=== PATIENT | male | born 1985 | race Caucasian/White ===

== ENCOUNTER 2022-06-13 08:29 | Emergency (ER) | payer MEDICAID, OTHER ==
[~2022-06-13] VITALS: Ht 177.8 cm; Wt 82.0 kg
[2022-06-13] MEDS ORDERED: EPINEPHrine HCL 1 MG/10 ML SYRG IV ONE (08:30)
[2022-06-13] MEDS ORDERED: SODIUM BICARBONATE 8.4% INJ 50ML SYRINGE IV ONE (08:30)
[2022-06-13] MEDS ORDERED: DOPamine 1600mCg/ml 400MG/250ml NSorD5 KIT/BAG IV ONE (08:30)
[2022-06-13] MEDS ORDERED: SODIUM CHLORIDE 0.9% 1,000 ML IV ONE ×2 (09:15)
[2022-06-13 09:21] LABS: Hemoglobin 9.5 g/dL (13.5-17.5)
[2022-06-13 09:22] LABS: Hematocrit 29.3 % (41.0-53.0); Mean Corpuscular Hemoglobin 27.4 pg (28.0-32.0); Mean Corpuscular Hgb Conc. 32.5 g/dL (32.0-36.0); Mean Corpuscular Volume 84.4 fL (80.0-100.0); Red Blood Cells 3.47 10^6/uL (4.5-5.90); Red Cell Distribution Width 14.6 % (11.8-14.3)
[2022-06-13 09:33] LABS: Albumin 1.9 g/dL (3.4-5.0); Calcium 7.8 mg/dL (8.5-10.1); Potassium 3.7 mmol/L (3.5-5.1)
[2022-06-13 09:38] LABS: White Blood Cell 38.2 10^3/uL (4.4-10.8)
[2022-06-13 09:39] LABS: Bilirubin, Total 1.8 mg/dL (0.2-1.0); Total Protein 6.2 g/dL (6.4-8.2)
[2022-06-13 09:40] LABS: Basophils % (manual) 0 (0.0-2.0); Blast Cells 0; Eosinophils % (manual) 0 (0-7); Metamyelocytes % 0; Myelocytes % 0; Promyelocytes % 0; Reactive Lymphocytes 0
[2022-06-13] MEDS ORDERED: IOHEXOL 350 MG/ML 100ML IJ ONE (09:56)
[2022-06-13] MEDS ORDERED: MAGNESIUM SULFATE 1GM/100ML 100 ML IV ONE (10:00)
[2022-06-13] MEDS ORDERED: cefTRIAXone 1GM/50ML D5W 50 ML IV ONE (10:00)
[2022-06-13] MEDS ORDERED: IPRATROPIUM BROM 0.5 MG/2.5ML INH SOL NEB ONE (10:00)
[2022-06-13] MEDS ORDERED: AZITHROMYCIN 500MG/ 250ML 250 ML IV ONE (10:00)
[2022-06-13] MEDS ORDERED: methylPREDNISolone SOD SUCC 125 MG/2 ML VL IV ONE (10:00)
[2022-06-13] MEDS ORDERED: ALBUTEROL SULF 2.5 MG/0.5ML(0.5%) NEB SOLN NEB ONE (10:00)
[2022-06-13] MEDS ORDERED: LORazepam 2MG/ML-1ML VIAL IV ONE (11:00)
[2022-06-13 11:03] LABS: Band Neutrophils % (manual) 8; Lymphocytes % (manual) 16 (10.0-50.0); Monocytes % (manual) 1 (0-12)
[2022-06-13] MEDS ORDERED: HALOPERIDOL LACTATE 5 MG/ML INJ VIAL ONE (11:16)
[2022-06-13] MEDS ORDERED: ETOMIDATE (2MG/ML) 20ML VIAL IV ONE ×2 (11:25→11:30)
[2022-06-13] MEDS ORDERED: SUCCINYLCHOLINE CHLORIDE 20 MG/ML 10ML VIAL IV ONE ×2 (11:25→11:30)
[2022-06-13] MEDS ORDERED: MIDAZOLAM DRIP 50 mg/50mL 50 ML IV ONE (11:25)
[2022-06-13] MEDS: MIDAZOLAM DRIP 50 mg/50mL 50 ML IV SCH (11:30)
[2022-06-13] MEDS ORDERED: SODIUM BICARBONATE 8.4 % INJ 50ML VIAL IV ONE ×5 (11:47→12:56)
[2022-06-13 11:50] LABS: Lactic Acid w/Reflex 7.2 mmol/L (0.4-2.0)
[2022-06-13 12:07] VITALS: BP 143/50
[2022-06-13 12:12] LABS: Alcohol, Urine < 3.0 mg/dL (0-10); Cannabinoid Screen, Urine POSITIVE (NEGATIVE); Opiate Scree,Urine NEGATIVE (NEGATIVE); Phencyclidine Screen, Urine NEGATIVE (NEGATIVE)
[2022-06-13] MEDS ORDERED: VANCOMYCIN PER PHARMACY 0 MG IV SCH (12:15)
[2022-06-13 12:20] LABS: Amphetamine Screen, Urine NEGATIVE (NEGATIVE); Barbiturate Scree,Urine NEGATIVE (NEGATIVE); Benzodiazephine Screen, Urine NEGATIVE (NEGATIVE); Cocaine Screen, Urine NEGATIVE (NEGATIVE)
[2022-06-13] MEDS ORDERED: EPINEPHrine HCL 250 ML IV ONE (12:28)
[2022-06-13] MEDS ORDERED: VANCOMYCIN 1GM/250ML 250 ML IV ONE (12:30)
[2022-06-13] MEDS ORDERED: SODIUM BICARBONATE 50ML VIAL 150 ML in SODIUM CHL 0.9% 1,000 ML IV ONE (12:33)
[2022-06-13 12:48] LABS: Urine Bacteria FEW /hpf (None Seen); Urine Blood 1+ /uL (Negative); Urine Hyaline Cast FEW /lpf (0 - 2); Urine Mucus FEW (None Seen); Urine Specific Gravity 1.032 (1.001-1.035); Urine WBC 3 /hpf (0 - 3)
[2022-06-13] MEDS ORDERED: EPINEPHrine HCL 1 MG/10 ML SYRG ONE ×2 (12:48→12:57)
[2022-06-13] MEDS ORDERED: SODIUM BICARBONATE 8.4% INJ 50ML SYRINGE ONE (12:58)
[2022-06-13] MEDS ORDERED: DOPamine 1600MCG/ML D5W 250 ML IV ONE (12:59)
[2022-06-13] MEDS ORDERED: CEFEPIME 2 GM in SODIUM CHL 0.9% 50 ML IV SCH (14:00)
== END 2022-06-13 13:10 ==
LOC: ER 08:29 → EDBD 08:29 → ER 13:10
DX: A41.9 Sepsis, unspecified organism (principal); J96.90 Respiratory failure, unspecified, unspecified whether with hypoxia or hypercapnia; R00.0 Tachycardia, unspecified; I95.9 Hypotension, unspecified; J18.9 Pneumonia, unspecified organism; Z79.899 Other long term (current) drug therapy
CPT/HCPCS: 31500; 33016; 36415; 36556; 36600; 70450; 71045; 71275; 80053; 80307; 80320; 81001; 82805; 82962; 83605; 85007; 85027; 85379; 87040; 87077; 87186; 92950; 93005; 93306; 94640; 94660; 96361; 96365; 96368; 96375; 99291; J0171; J0330; J0456; J0696; J1265; J1630; J2060; J2250; J2930; J3475; J7030; J7644; Q9967; 94002